=== PATIENT | female | born 1975 | race Hispanic/Latino ===

== ENCOUNTER 2017-02-22 11:35 | Emergency (ER) | payer SELFPAY ==
[2017-02-22 11:54] VITALS: BP 135/81
--- NOTE | 2017-02-22 15:26 | Emergency Department Report ---
ED General Adult HPI - General Chief complaint: Urogenital-Female Stated complaint: VAGINAL LACERATION Time Seen by Provider: 02/22/17 15:14 Source: patient Mode of arrival: Ambulatory Limitations: No Limitations - History of Present Illness Initial comments: PT c/o growth to her L groin x 3-4 weeks. PT states when she first noticed it, she thought maybe she cut herself shaving or had a hair bump, but she does not remember an injury. PT states that the area has swollen to the size of her pinky finger and it keeps bleeding. PT states she has to keep it bandage. PT denies fevers, chills, nausea or vomiting. PT states the site does not hurt. MD Complaint: skin growth -: Gradual, week(s) (3-4) Location: pelvis Severity scale (0 -10): 0 Consistency: constant Associated Symptoms: denies: fever/chills, headaches, loss of appetite, nausea/ vomiting Treatments Prior to Arrival: other (dressing ) - Related Data Allergies Allergy/AdvReac Type Severity Reaction Status Date / Time No Known Allergies Allergy Unverified 02/22/17 11:50 ED Review of Systems ROS: Stated complaint: VAGINAL LACERATION Other details as noted in HPI Comment: All other systems reviewed and negative Constitutional: denies: chills, fever Gastrointestinal: denies: nausea, vomiting Genitourinary: denies: abnormal menses (lmp 02-06-17) Neurological: denies: headache, weakness ED Past Medical Hx - Past Medical History Previous Medical History?: No - Surgical History Past Surgical History?: No - Social History Smoking Status: Never Smoker Substance Use Type: None ED Physical Exam - General Limitations: No Limitations General appearance: alert, in no apparent distress - Head Head exam: Present: atraumatic, normocephalic, normal inspection - Eye Eye exam: Present: normal appearance, PERRL, EOMI. Absent: conjunctival injection - ENT ENT exam: Present: normal exam, mucous membranes moist - Neck Neck exam: Present: normal inspection - Respiratory Respiratory exam: Present: normal lung sounds bilaterally. Absent: respiratory distress - Cardiovascular Cardiovascular Exam: Present: regular rate, normal rhythm - GI/Abdominal GI/Abdominal exam: Present: soft. Absent: tenderness, guarding, rebound, rigid - External exam: Present: lesions (1 cm lesion to L groin, actively bleeding. ) - Extremities Exam Extremities exam: Present: normal inspection, full ROM - Back Exam Back exam: Present: normal inspection, full ROM. Absent: tenderness, CVA tenderness (R), CVA tenderness (L) - Neurological Exam Neurological exam: Present: alert, oriented X3 - Psychiatric Psychiatric exam: Present: normal affect, normal mood - Skin Skin exam: Present: warm, dry, intact, normal color - Expanded Skin Exam Expanded Description of rash: Present: other (scattered henry angiomas) ED Course Vital Signs 02/22/17 11:50 Temperature 98.4 F Pulse Rate 73 Respiratory 16 Rate Blood Pressure 135/81 O2 Sat by Pulse 97 Oximetry - Reevaluation(s) Reevaluation #1: 02/22/17 15:29 PT also seen by Dr Mckeon who agrees with plan of care. PT has no questions at this time. Reevaluation #2: 02/22/17 15:40 Helistat collagen applied. hemostatis achieved. - Pulse Oximetry Interpretation Digit-Finger Initial Pulse Oximetry Readin Actions Taken: none ED Medical Decision Making - Differential Diagnosis lesion, laceration, abscess, hpv, henry angioma Critical Care Time: No Critical care attestation.: If time is entered above; I have spent that time in minutes in the direct care of this critically ill patient, excluding procedure time. ED Disposition Clinical Impression: Hemorrhage of skin lesion, Need for Tdap vaccination Disposition: TO HOME OR SELFCARE Is pt being admited?: No Does the pt Need Aspirin: No Condition: Stable Instructions: Skin biopsy (ED) Additional Instructions: Please follow up with a Engineering Assistant in the next 3-5 days for biopsy of site No shaving around site Follow up with PCP in 3-5 days for bp recheck Referrals: [facility] [Provider Group] - 3-5 Days [facility] [Provider Group] - 3-5 Days [facility] [Outside] - 3-5 Days DANIA ALVAREZ MD [Staff Physician] - 3-5 Days [facility] [Primary Care Provider] - 3-5 Days Forms: Accompanied Note, Work/School Release Form(ED) Time of Disposition: 15:31
[2017-02-22] MEDS ORDERED: BOOSTRIX IM ONE (15:32)
== END 2017-02-22 16:15 | disposition home or self-care (01) ==
LOC: ED 11:35
DX: R19.09 Other intra-abdominal and pelvic swelling, mass and lump (principal)
CPT/HCPCS: 90471; 90715; 99282